=== PATIENT | female | born 1985 | race Caucasian/White ===

== ENCOUNTER 2017-05-09 05:17 | Day surgery (SDC) | payer OTHER ==
[~2017-05-09] VITALS: Ht 157.5 cm; Wt 65.8 kg
--- NOTE | ~2017-05-09 | O ---
[address] [address] OPERATIVE REPORT Name: SRIDHAR FERRELL Room #: 150-5 [facility]#: [id number] Admission: 05/09/17 Attend Phys: Richard Casillas MD Discharge: Date of : 85 Report #: [id number] THIS REPORT FOR: //name// CC: FAM unknown Richard Casillas DATE OF SERVICE: 05/09/2017 SERVICE: Orthopedics. FACILITY: [facility]. 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 PREOPERATIVE DIAGNOSES: 1. Right hip pain. 2. Right hip labral tear. 3. Right hip femoroacetabular impingement, Cam type. POSTOPERATIVE DIAGNOSES: 1. Right hip pain. 2. Right hip labral tear. 3. Right hip femoroacetabular impingement, Cam type. PROCEDURES: 1. Right hip arthroscopic acetabuloplasty. 2. Right hip arthroscopic labral repair. 3. Right hip arthroscopic Cam osteochondroplasty. 4. Right hip arthroscopic capsular closure. COMPLICATIONS: None. DRAINS: None. SPECIMENS: None. ANESTHESIA TYPE: Single shot regional nerve block with general endotracheal. ESTIMATED BLOOD LOSS: 5 mL. FINDINGS: 1. Chondral wave sign with a full thickness labral tear, slightly more anterior and medial. 2. Labral repair performed with [employer] suture anchor x [address] [address] OPERATIVE REPORT Name: SRIDHAR FERRELL Room #: 150-5 [facility]#: [id number] Admission: 05/09/17 Attend Phys: Richard Casillas MD Discharge: Date of : 85 Report #: [id number] 2. 3. Capsular repair performed with #2 Vicryl x 3. HISTORY AND INDICATIONS: The patient is a 32-year-old female with a longstanding history of right hip going on approximately 9 years now originating from the of her child. She has had extensive conservative measures including activity modification, rest, formal physical therapy for multiple months' at a time, for several rounds as well, oral medications and injections, all without sufficient relief. She eventually wished to undergo surgical treatment with the diagnosis of right hip impingement. She had an alpha angle of 61 degrees on her preoperative imaging. She had no signs of arthritis and she had a labral tear on MRI. Risks, benefits, alternatives and indications for surgery were discussed with her in detail. Risks include but not limited to pain, bleeding, infection, injury to nerves or blood vessels, persistent pain despite surgical intervention, failure of any repairs, reconstructions, progression of any preexisting chondral injury, stiffness, need for further surgery as well as complications related to anesthesia such as stroke, heart attack, pulmonary complications, thromboembolic disease and . Despite these risks, she wished to proceed. PROCEDURE IN DETAIL: After right lower extremity was correctly identified in the preoperative holding area as the operative extremity, the patient underwent placement of a single shot regional nerve block by the anesthesia team. She was then taken to the operating room and placed supine on operating table and general anesthesia was induced without complication. She was padded appropriately. Prophylactic antibiotics were administered at appropriate time. Traction boots were applied to the bilateral lower extremities and the femoral head and neck junction was mapped out on the right side to identify the extent of the Cam. This was relatively focal in location from about the 5 degree position to the 50 degree position and the apex of the Cam deformity was approximately 60-61 degrees. Right lower extremity was then prepped and draped in standard sterile fashion. Time-out procedure was performed. Traction was applied to the right lower extremity. Total traction time was 36 minutes. Standard anterolateral viewing portal was established followed by mid anterior working portal. Diagnostic arthroscopy revealed intact articular cartilage throughout; however, there was a chondral wave sign about the 11 o'clock position. There was a labral tear extending from the 12 o'clock to the 1 o'clock position. This was full thickness and there is granulation tissue from attempted healing in this location as well. There is also ecchymosis in the labrum. There was some yellowing within the labral tissue fibers. Posteriorly, everything was normal. A transverse capsulotomy was performed and then the capsule was reflected off the dorsal side of the labrum to allow access to the acetabular rim and the labrum. The bur was used to perform an acetabular limited acetabuloplasty on the rim and this served benefit of generating a bleeding surface for labral repair and healing. A distal anterolateral [address] [address] OPERATIVE REPORT Name: SRIDHAR FERRELL Room #: 150-5 [facility]#: [id number] Admission: 05/09/17 Attend Phys: Richard Casillas MD Discharge: Date of : 85 Report #: [id number] accessory portal was established and then the first anchor was placed with a mattress suture. Good sabianist of the labral position was achieved in this being the 12 o'clock position stabilized the chondral wave sign. A second anchor was placed more anteriorly with a mattress suture as well and this provided final stability of the labrum. Then, the traction was let down. The hip was flexed up. The Cam lesion was visualized and then using the bur and a fluoroscopic assistance, a Cam osteoplasty was performed in a standard technique. The instruments were removed from the hip. I visualized an additional area that needed resection on the fluoro. I placed the instruments back in the hip completing the Cam osteoplasty and then performed a capsular closure utilizing #2 Vicryl x 3 sutures. The instruments were removed from the hip. Arthroscopic effusion was drained. The portal sites were closed with a deep followed by a superficial suture and sterile dressing was applied. The patient was awakened from anesthesia and taken to recovery room in stable condition. There were no complications. All counts were recorded as correct. <ELECTRONICALLY SIGNED> By: Richard Casillas MD 05/09/17 [id number] [id number] Richard Casillas MD /nt
[~2017-05-09 05:17] MED LIST: TRAMADOL 50 MG50 MG PO
[2017-05-09 06:30] VITALS: BP 100/66
== END 2017-05-09 11:00 | disposition home or self-care (01) ==
LOC: OR 05:17 → TBA 05:18 → OR 10:10
DX: S73.191A Other sprain of right hip, initial encounter (principal); M25.851 Other specified joint disorders, right hip
CPT/HCPCS: 50010; 50101; 50386; 51538; 52298; 52304; 55430; 56524; 56527; 57092; 62110; 62900; 70005